=== PATIENT | male | born 1975 | race Caucasian/White ===

== ENCOUNTER 2018-06-26 23:27 | Emergency (ER) | payer OTHER ==
[~2018-06-26] VITALS: Ht 170.2 cm; Wt 83.9 kg
[~2018-06-26 23:27] MED LIST: BENTYL 20 MG TA20 M1 PO; HUMALOG100 UNIT/1 SUBQ; LANTUS100 UNIT/M SUBQ; OSELB75 PO; ZOFRAN ODT4 MG PO
[2018-06-26 23:45] LABS: ABSOLUTE BASOPHILS 0.1 thou/uL (0.0-0.2); ABSOLUTE EOSINOPHILS 0.2 thou/uL (0.0-0.7); ABSOLUTE LYMPHOCYTES 2.2 thou/uL (0.8-5.3); ABSOLUTE MONOCYTES 0.6 thou/uL (0.0-1.2); ABSOLUTE NEUTROPHILS 2.8 thou/uL (1.6-8.1); BASOPHILS 0.9 %; EOSINOPHILS 2.9 %; HEMATOCRIT 41.6 % (42.0-52.0); MCHC 33.8 g/dL (28.0-37.0); MCV 94.8 fL (80.0-100.0); MONOCYTES 10.4 %; NUCLEATED RBCS 0 /100WBC; PLATELET COUNT* 240 thou/uL (150-400); POLYS 47.8 %; RBC 4.38 mil/uL (4.50-6.00); RDW-CV 13.1 % (10.5-14.5); WBC 5.8 thou/uL (4.0-11.0)
[2018-06-26 23:52] LABS: CALCIUM 8.5 mg/dL (8.5-10.1); CREATININE 0.9 mg/dL (0.6-1.3); POTASSIUM 3.3 mmol/L (3.5-5.1)
[2018-06-27 00:40] VITALS: BP 126/76
== END 2018-06-27 00:43 | disposition home or self-care (01) ==
LOC: M.ERS 23:27
PROVIDERS: Emergency Medicine
DX: E11.649 Type 2 diabetes mellitus with hypoglycemia without coma (principal); Z79.4 Long term (current) use of insulin